=== PATIENT | male | born 1995 | race African-American/Black ===

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

== ENCOUNTER 2017-08-26 06:58 | Emergency (ER) | payer SELFPAY | END 2017-08-26 07:55 | disposition home or self-care (01) | LOC: ER 06:58 | DX: J32.1 Chronic frontal sinusitis (principal); F12.10 Cannabis abuse, uncomplicated | CPT/HCPCS: 99283 ==

== ENCOUNTER 2017-09-09 09:09 | Emergency (ER) | payer SELFPAY | END 2017-09-09 10:40 | disposition home or self-care (01) | LOC: ER 09:09 | DX: R19.7 Diarrhea, unspecified (principal); R11.0 Nausea; R10.84 Generalized abdominal pain; R68.83 Chills (without fever); F12.10 Cannabis abuse, uncomplicated | CPT/HCPCS: 99283 ==

== ENCOUNTER 2017-09-16 15:28 | Emergency (ER) | payer SELFPAY | END 2017-09-16 16:35 | disposition home or self-care (01) | LOC: ER 15:28 | DX: S63.91XA Sprain of unspecified part of right wrist and hand, initial encounter (principal); F12.10 Cannabis abuse, uncomplicated; Y04.0XXA Assault by unarmed brawl or fight, initial encounter; Y93.89 Activity, other specified; Y92.89 Other specified places as the place of occurrence of the external cause; Y99.8 Other external cause status | CPT/HCPCS: 29125; 73130; 99284 ==

== ENCOUNTER 2018-01-22 10:44 | Emergency (ER) | payer SELFPAY ==
[2018-01-22] MEDS: LIDOCAINE WITH 8.4% SOD BICARB 3 ML DISP.SYRIN. INJ (11:05)
[2018-01-22] MEDS: DIPHTH,PERTUSS(ACELL),TET TOX 0.5 ML DISP.SYRIN. VAX IM (11:06)
== END 2018-01-22 11:30 | disposition home or self-care (01) ==
LOC: ER 10:44
DX: S61.214A Laceration without foreign body of right ring finger without damage to nail, initial encounter (principal); W25.XXXA Contact with sharp glass, initial encounter; Y93.89 Activity, other specified; Y92.89 Other specified places as the place of occurrence of the external cause; Y99.8 Other external cause status
CPT/HCPCS: 12001; 90471; 90715; 99283